=== PATIENT | male | born 1985 | race Caucasian/White ===

== ENCOUNTER 2019-11-26 16:15 | Emergency (ER) | payer SELFPAY ==
[~2019-11-26] VITALS: Ht 165.1 cm; Wt 65.8 kg
[2019-11-26 16:21] VITALS: BP 130/93
--- NOTE | 2019-11-26 16:30 | NUR ---
ananya recinos at bedside evaluating pt.
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
[2019-11-26] MEDS ORDERED: KETOROLAC 60 MG/2 ML VIAL IM ONE (16:40)
--- NOTE | 2019-11-26 16:55 | NUR ---
to xray via wheelchair.
--- NOTE | 2019-11-26 16:55 | NUR ---
xray at bedside .
--- NOTE | 2019-11-26 17:05 | NUR ---
pt back from [facility] via wheelchair.
--- NOTE | 2019-11-26 18:10 | NUR ---
kavita rose discharge pt.
[2019-11-26 18:32] VITALS: BP 121/91
== END 2019-11-26 18:29 | disposition home or self-care (01) ==
LOC: MED 16:15
DX: S02.2XXA Fracture of nasal bones, initial encounter for closed fracture (principal); Y08.89XA Assault by other specified means, initial encounter; Y93.89 Activity, other specified; Y92.89 Other specified places as the place of occurrence of the external cause; Y99.8 Other external cause status
CPT/HCPCS: 70160; 96372; 99283; J1885